=== PATIENT | male | born 1960 | race Caucasian/White ===

== ENCOUNTER 2019-01-30 08:08 | Day surgery (SDC) | payer OTHER ==
[~2019-01-30] VITALS: Ht 188 cm; Wt 106.5 kg
[~2019-01-30 08:08] MED LIST: ANDROGEL75 GM; ASCO500; Advil200 M1; Advil200 M1 PO; CALCA500CH; CHOL10002; GLUC500; Glucosamine &1 EACH PO; HYDCHL12.5 PO; LOSARTAN POTAS100 MG; LOSARTAN POTAS100 MG PO; MAGNESIUM400 MG PO; MULTI VITAMIN1 EACH PO; MULVITMIND; SILDENAFIL20 MG PO; Selenium50 MCG; TESTOSTERONE5 G1 TD
--- NOTE | 2019-01-30 09:14 | NUR ---
01/30/19 0914 Patricia Contreras PT IS EXTREMELY ANXIOUS, HE IS ASKING FOR "VALIUM", I EXPLAINED THAT I AM NOT ALLOWED TO GIVE MEDICATION WITHOUT THE DOCTORS ORDERS. I TOLD HIM THAT WILL BE IN TO SPEAK WITH HIM AND HE COULD ASK AT THAT TIME. HIS IS BY HIS SIDE, TRYING CALMING MEASURES.
== END 2019-01-30 10:38 | disposition home or self-care (01) ==
LOC: ORSCSDS 08:08
PROVIDERS: Internal Medicine Gastroenterology
PROC: 0DBN8ZX Excision of Sigmoid Colon, Via Natural or Artificial Opening Endoscopic, Diagnostic (ICD-10-PCS; principal; 2019-01-30 09:30)
DX: Z12.11 Encounter for screening for malignant neoplasm of colon (principal); D12.5 Benign neoplasm of sigmoid colon; K57.30 Diverticulosis of large intestine without perforation or abscess without bleeding; G47.33 Obstructive sleep apnea (adult) (pediatric); R74.8 Abnormal levels of other serum enzymes; Z86.010 Personal history of colon polyps; F17.210 Nicotine dependence, cigarettes, uncomplicated; Z79.899 Other long term (current) drug therapy; E78.5 Hyperlipidemia, unspecified; I10 Essential (primary) hypertension
CPT/HCPCS: 88305; J1980; J2704; J7120

== ENCOUNTER → 2021-02-05 | Outpatient (CLI) | payer OTHER | END | disposition home or self-care (01) | LOC: LAB SHORT 08:00 | DX: D22.5 Melanocytic nevi of trunk (principal) | CPT/HCPCS: 88305 ==

== ENCOUNTER 2024-01-24 10:32 | Day surgery (SDC) | payer OTHER ==
[~2024-01-24] VITALS: Ht 188 cm; Wt 115.3 kg
[~2024-01-24 10:32] MED LIST changes: +Lactated Ringer's 1,000 ML IV ONE; +propofoL 50 ML IV ONE
[2024-01-24] MEDS ORDERED: DHEA PO (11:59)
[2024-01-24] MEDS ORDERED: FISH OIL 1,0001 EA10 PO (11:59)
[2024-01-24] MEDS ORDERED: ZINC15 PO (11:59)
[2024-01-24] MEDS ORDERED: Vitamin D1000 UNI1 (11:59)
[2024-01-24] MEDS ORDERED: Lactated Ringer's 1,000 ML IV ONE (12:31)
[2024-01-24] MEDS ORDERED: Hyoscyamine Sulfate 0.5 MG/ML 1ML Amp ONE (13:38)
[2024-01-24 14:26] VITALS: BP 120/60
--- NOTE | 2024-01-24 14:40 | NUR ---
01/24/[address] ORDERED 12 LEAD EKG IN POST OP. 12 LEAD COMPLETED, ATRIAL FIBRILLATION DEPICTED. DR KHOURY NOTIFIED. DR KHOURY OK'D PT FOR DISCHARGE. RN NOTIFIED PCP DR GUTHRIE REGARDING THIS MANNER PER DR KHOURY. [address] GUTHRIE'S OFFICE.
== END 2024-01-24 14:27 | disposition home or self-care (01) ==
LOC: ORSCSDS 10:32
PROVIDERS: Internal Medicine Gastroenterology
PROC: 0DBM8ZX Excision of Descending Colon, Via Natural or Artificial Opening Endoscopic, Diagnostic (ICD-10-PCS; principal; 2024-01-24 11:45)
PROC: 0DBP8ZX Excision of Rectum, Via Natural or Artificial Opening Endoscopic, Diagnostic (ICD-10-PCS; principal; 2024-01-24 11:45)
DX: Z12.11 Encounter for screening for malignant neoplasm of colon (principal); D12.4 Benign neoplasm of descending colon; K57.30 Diverticulosis of large intestine without perforation or abscess without bleeding; Z86.010 Personal history of colon polyps; Z80.0 Family history of malignant neoplasm of digestive organs; F17.210 Nicotine dependence, cigarettes, uncomplicated; Z79.82 Long term (current) use of aspirin; Z79.899 Other long term (current) drug therapy
CPT/HCPCS: 88305; J1980; J2704; J7120

== ENCOUNTER → 2025-07-16 | Outpatient (CLI) | payer OTHER ==
[~2025-07-16] MED LIST changes: +DHEA PO; +FISH OIL 1,0001 EA10 PO; -Lactated Ringer's 1,000 ML IV ONE; +Vitamin D1000 UNI1; +ZINC15 PO; -propofoL 50 ML IV ONE
[2025-07-16 16:14] LABS: Protein, Urine Quantitative 8.4 mg/dL (0.0-11.9)
[2025-07-16 16:23] LABS: Microalbumin, Urine Quant. <5.000 mg/L (0.000-20.000)
== END | disposition home or self-care (01) ==
LOC: LAB SHORT → LAB
PROVIDERS: Internal Medicine Nephrology
DX: N18.30 Chronic kidney disease, stage 3 unspecified (principal); D63.1 Anemia in chronic kidney disease; N25.81 Secondary hyperparathyroidism of renal origin; E55.9 Vitamin D deficiency, unspecified; E78.00 Pure hypercholesterolemia, unspecified; N40.1 Benign prostatic hyperplasia with lower urinary tract symptoms; D51.8 Other vitamin B12 deficiency anemias; D52.8 Other folate deficiency anemias; D50.9 Iron deficiency anemia, unspecified; R76.9 Abnormal immunological finding in serum, unspecified; R94.5 Abnormal results of liver function studies; R94.6 Abnormal results of thyroid function studies
CPT/HCPCS: 82043; 82570; 84156